=== PATIENT | female | born 1995 | race Caucasian/White ===

== ENCOUNTER 2018-01-14 15:26 | Observation (INO) | payer OTHER ==
[~2018-01-14] VITALS: Ht 160 cm; Wt 63.5 kg
[2018-01-14] MEDS ORDERED: CYMBALTA60 MG PO (15:49)
[2018-01-14] MEDS ORDERED: BUPROPION XL150 MG PO (15:49)
[2018-01-14 16:10] LABS: BASOPHILS # (AUTO) 0.1 (0.0-0.1); BASOPHILS % 0.5 % (0.0-1.0); EOSINOPHILS # (AUTO) 0.1 (0.0-0.4); EOSINOPHILS % 0.6 % (0.0-6.0); HEMATOCRIT 41.1 % (34.2-44.1); HEMOGLOBIN 13.9 g/dL (12.0-16.0); LYMPHOCYTES # (AUTO) 1.8 (1.0-3.2); LYMPHOCYTES % 16.8 % (18.0-39.1); MEAN CORPUSCULAR HEMOGLOBIN 30.5 pg (28-32); MEAN CORPUSCULAR HGB CONC 33.8 g/dL (31-35); MEAN CORPUSCULAR VOLUME 90.3 fL (81-99); MONOCYTES # (AUTO) 1.2 (0.2-0.8); MONOCYTES % 11.3 % (4.4-11.3); NEUTROPHILS # (AUTO) 7.5 (2.1-6.9); NEUTROPHILS % 70.5 % (38.7-80.0); PLATELET COUNT 268 x10e3/uL (140-360); RED BLOOD COUNT 4.55 x10e6/uL (3.6-5.1); RED CELL DISTRIBUTION WIDTH 13.1 % (11.7-14.4)
[2018-01-14] MEDS ORDERED: SODIUM CHLORIDE 0.9% 1000ML 1,000 ML IV ONE (16:15)
[2018-01-14 16:23] LABS: ALANINE AMINOTRANSFERASE 16 IU/L (0-55); ALBUMIN 3.9 g/dL (3.5-5.0); ALBUMIN/GLOBULIN RATIO 1.2 (0.8-2.0); ALKALINE PHOSPHATASE 76 IU/L (40-150); ANION GAP 16.6 mmol/L (8-16); BLOOD UREA NITROGEN 11 mg/dL (7-26); BUN/CREATININE RATIO 13 (6-25); CALCIUM 9.7 mg/dL (8.4-10.2); CARBON DIOXIDE 22 mmol/L (22-29); CHLORIDE 102 mmol/L (98-107); CREATININE, SERUM 0.84 mg/dL (0.57-1.11); EST GLOMERULAR FILTRATION RATE > 60 ML/MIN (60-); GLUCOSE 117 mg/dL (74-118); MAGNESIUM 2.2 MG/DL (1.3-2.1); POTASSIUM 3.6 mmol/L (3.5-5.1); SODIUM 137 mmol/L (136-145)
[2018-01-14 16:25] LABS: CLARITY,URINE SL CLOUDY (CLEAR); COLOR,URINE YELLOW (YELLOW)
[2018-01-14 16:26] LABS: BILIRUBIN,URINE NEGATIVE (NEGATIVE); KETONES,URINE NEGATIVE (NEGATIVE); LEUKOCYTE ESTERASE ,URINE TRACE (NEGATIVE); NITRITE,URINE NEGATIVE (NEGATIVE); PROTEIN,URINE DIPSTICK TRACE (NEGATIVE); URINE UROBILINOGEN 0.2 mg/dL (0.2 - 1)
[2018-01-14 16:28] LABS: AMPHETAMINES SCREEN,URINE NEGATIVE (NEGATIVE); BENZODIAZEPINES SCREEN,URINE NEGATIVE (NEGATIVE); PHENCYCLIDINE SCREEN,URINE NEGATIVE (NEGATIVE)
[2018-01-14 16:38] LABS: WBC,URINE (MAN) 0-5 /HPF (0-5)
[2018-01-14 16:39] LABS: BACTERIA,URINE MODERATE /HPF; EPITHELIAL CELLS,URINE FEW /LPF
--- NOTE | 2018-01-14 17:55 | Diagnostic Imaging Report ---
Exam: Head CT without contrast History: Possible seizure Comparison studies: None Technique: Axial images were obtained from the skull base to the vertex. Coronal and sagittal images reconstructed from the axial data. Dose modulation, iterative reconstruction, and/or weight based adjustment of the mA/kV was utilized to reduce the radiation dose to as low as reasonably achievable. Radiation dose: Total DLP: 806 mGy*cm. Estimated effective dose: DLP x 0.015 Intravenous contrast: None Findings: Scalp: No abnormalities. Bones: No fractures, blastic or lytic lesions. Brain sulci: Appropriate for age. Ventricles: Normal in size and configuration. No hydrocephalus. Extra-axial spaces: No masses, no fluid collection. Parenchyma: No abnormal densities. No masses, acute hemorrhage, acute or chronic vascular insults. Sellar/suprasellar region: No abnormalities. Craniocervical junction: Patent foramen magnum. No Chiari one malformation. Incidental findings: Metallic right tragus piercing. IMPRESSION: No acute abnormalities. Signed by: Dr. Everton Barone M.D. on 01/14/2018 4:49 PM
[2018-01-14] MEDS: SODIUM CHLORIDE 0.9% 1000ML 1,000 ML IV SCH (18:34)
[2018-01-14 18:44] VITALS: BP 125/88
[2018-01-14 20:00] VITALS: BP 109/77
[2018-01-14] MEDS ORDERED: ACETAMINOPHEN 325 MG TAB PO PRN (20:00)
--- NOTE | 2018-01-14 20:44 | Consultation ---
DATE OF CONSULTATION: January 14, 2018 NO DICTATION. 19 seconds. Job#: [id number]
[2018-01-15] VITALS: BP 109/72
[2018-01-15 04:00] VITALS: BP 97/61
[2018-01-15] MEDS: SODIUM CHLORIDE 0.9% 1000ML 1,000 ML IV SCH ×2 (05:05→09:34)
[2018-01-15 05:20] LABS: BASOPHILS # (AUTO) 0.1 (0.0-0.1); BASOPHILS % 0.7 % (0.0-1.0); EOSINOPHILS # (AUTO) 0.1 (0.0-0.4); EOSINOPHILS % 0.9 % (0.0-6.0); HEMATOCRIT 40.1 % (34.2-44.1); HEMOGLOBIN 13.1 g/dL (12.0-16.0); LYMPHOCYTES # (AUTO) 3.2 (1.0-3.2); LYMPHOCYTES % 32.7 % (18.0-39.1); MEAN CORPUSCULAR HEMOGLOBIN 30.7 pg (28-32); MEAN CORPUSCULAR HGB CONC 32.7 g/dL (31-35); MEAN CORPUSCULAR VOLUME 93.9 fL (81-99); MONOCYTES # (AUTO) 1.1 (0.2-0.8); NEUTROPHILS # (AUTO) 5.3 (2.1-6.9); NEUTROPHILS % 54.4 % (38.7-80.0); PLATELET COUNT 250 x10e3/uL (140-360); RED BLOOD COUNT 4.27 x10e6/uL (3.6-5.1); RED CELL DISTRIBUTION WIDTH 13.2 % (11.7-14.4)
[2018-01-15 05:44] LABS: ANION GAP 11.6 mmol/L (8-16); BLOOD UREA NITROGEN 8 mg/dL (7-26); BUN/CREATININE RATIO 11 (6-25); CALCIUM 9.4 mg/dL (8.4-10.2); CARBON DIOXIDE 26 mmol/L (22-29); CHLORIDE 110 mmol/L (98-107); CREATININE, SERUM 0.74 mg/dL (0.57-1.11); EST GLOMERULAR FILTRATION RATE > 60 ML/MIN (60-); GLUCOSE 92 mg/dL (74-118); MAGNESIUM 2.6 MG/DL (1.3-2.1); SODIUM 143 mmol/L (136-145)
[2018-01-15 05:45] LABS: POTASSIUM 4.6 mmol/L (3.5-5.1)
[2018-01-15 05:51] LABS: PHOSPHORUS 3.8 MG/DL (2.3-4.7)
[2018-01-15 07:15] VITALS: BP 99/61
[2018-01-15 07:43] VITALS: BP 99/61
[2018-01-15] MEDS ORDERED: CEFTRIAXONE SOD 1 GM/NS 50 ML 50 ML IV SCH (08:15)
[2018-01-15] MEDS ORDERED: CEFTRIAXONE SOD 1 GM VIAL IV SCH ×2 (08:30)
[2018-01-15] MEDS ORDERED: BUPROPION HCL 150 MG TABCR PO SCH (09:00)
--- NOTE | 2018-01-15 09:52 | Diagnostic Imaging Report ---
EXAMINATION: MRI of the brain without contrast. HISTORY: 22-year-old female with seizures COMPARISON: None. TECHNIQUE: Sagittal T2; axial DWI, T2, FLAIR, T1-IR, T2 gradient echo; coronal FLAIR. IMAGE QUALITY: Adequate. FINDINGS: Parenchyma: 1. Questionable subtle increased FLAIR signal in the bilateral hippocampi, left greater than right . No significant hippocampal volume loss or architectural distortion. 2. Otherwise no areas of abnormal signal intensity within the brain parenchyma. 3. No mass, hemorrhage, acute or chronic infarcts. Skull: Unremarkable. Vessels: Expected flow voids present in the major arteries and dural sinuses. Extra-axial spaces: No abnormal signal intensity or mass effect. Brain volume: Within normal limits for age. Ventricles: No hydrocephalus or displacement. Foramen magnum: Unremarkable. Sella: Unremarkable. Paranasal / mastoid sinuses: Mild mucosal thickening in the right nasal cavity. IMPRESSION: 1. No mass, hemorrhage or vascular insult. 2. Questionable subtle increased FLAIR signal in the hippocampi, left greater than right, could be secondary to artifact, recent ictal activity or developing mesial temporal sclerosis. Preliminary report dictated by Dr. Caroline Jackson, Neuroradiology Fellow. A final report by the attending radiologist will follow. The preliminary report was reviewed and a final report issued by Dr. Morales neuroradiologist on 01/15/2018 at 4:42 PM. Signed by: Dr. Ruthie Morales M.D. on 01/15/2018 4:43 PM
[2018-01-15 11:50] VITALS: BP 119/85
--- NOTE | 2018-01-15 14:00 | Electroencephalogram ---
DATE OF STUDY: January 15, 2018 REQUESTING PHYSICIAN: Zulma Arias MD PATIENT HISTORY: This 22-year-old woman with syncope versus seizure is having an EEG for evaluation of epileptiform activity. The patient is not taking any medications that might affect the EEG. TECHNIQUE: This is a routine, portable EEG, recorded digitally using the International 10/20 Electrode Placement System and done in the inpatient setting with the patient awake. The EEG is technically limited because of muscle and electrical artifact. DESCRIPTION: Well-organized, well-sustained, 10-11 Hz activity is best seen symmetrically in the posterior head regions. No focal or epileptiform activity is recorded. Sleep is not recorded. Photic stimulation does produce a driving response. Hyperventilation does not produce slowing. INTERPRETATION: This EEG is normal with the patient awake. No epileptiform discharges are seen. Job#: [id number] GEORGINA MONTOYA
--- NOTE | 2018-01-15 17:11 | Consultation ---
DATE OF CONSULTATION: January 15, 2018 NEUROLOGY CONSULTATION HISTORY OF PRESENT ILLNESS: Ms. Campbell is a 22-year-old, [id number] woman with past medical history significant for prior syncopal events attributed to hypoglycemia and mixed depression and anxiety disorder, admitted to [facility] on January 14, 2018, with syncope versus seizure. On the afternoon of January 14, 2018, the patient was sitting in a hallway at school, reading a book. The next memory the patient has is coming to with her digital marketing manager sitting in front of her, other adults surrounding her and someone informing her emergency medical services had been notified. Ms. Campbell reports being told a student saw her sitting in a chair, unresponsive, with shaking of the arms and legs. Ms. Campbell was reported to be drooling as well. There was no tongue biting. There was no bladder or bowel incontinence. The duration of this activity is not known. Ms. Campbell does report a mild headache as well as diffuse myalgias following the event. The duration of the above activity is not known. When the patient regained consciousness, she knew who she was and where she was. However, she was confused as to why her digital marketing manager was sitting in front of her with other teachers and adults surrounding her. Ms. Campbell reports experiencing a similar event approximately 1 month ago. A few years ago, she experienced 2 syncopal events which were said to be due to hypoglycemia. Ms. Campbell does not report sleep deprivation, recent infectious illness, stimulant use (prescription or recreational), excessive alcohol intake, or recent adjustments of prescription psychotropic medications. Patient does not report a history of febrile seizures. There is no known family history of seizures. Ms. Campbell does report hitting her head once on concrete and another time on a sink during prior syncopal events. There is no reported history of meningitis or encephalitis. As indicated above, the patient was transported to the emergency center at [facility] via ambulance for further evaluation of her symptoms. Upon arrival in the emergency Center, the patient was afebrile with a blood pressure of 135/97 mmHg and pulse of 131 beats per minute. Her neurological examination was documented as being nonfocal. A CT of the brain without contrast was performed while the patient was in the emergency center. There was no evidence of recent large territorial ischemia or hemorrhage on this study. Ms. Campbell was admitted to [facility] under observation status for further evaluation and treatment. REVIEW OF SYSTEMS: Syncope, headache, diffuse myalgias. Otherwise, the 12-point review of systems is negative. PAST MEDICAL HISTORY: Prior syncopal events attributed to hypoglycemia, mixed depression/anxiety disorder. PAST SURGICAL HISTORY: Hye teeth extraction. PAST HOSPITALIZATIONS: None. FAMILY MEDICAL HISTORY: The patient's paternal grandparents are alive. The paternal grandfather is healthy. The paternal grandmother has diabetes mellitus. Ms. Campbell and her family have no contact with the patient's maternal grandfather. His medical history is unknown. The patient's maternal grandmother is alive. However, her medical history is unknown. Ms. Campbell's father is alive and has obstructive sleep apnea. Her mother is alive and healthy. The patient has 2 brothers and 4 sisters, all of whom are alive and healthy with the exception of the eldest sister who has hypertension. Ms. Campbell has no biological children. SOCIAL HISTORY: Patient is . 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 The patient does not report current or prior tobacco or recreational drug use. She is a social drinker. HOME MEDICATIONS: Wellbutrin 150 mg by mouth daily, Cymbalta 60 mg by mouth daily. ALLERGIES: NO KNOWN DRUG ALLERGIES. NO KNOWN FOOD ALLERGIES. NO KNOWN ALLERGIES TO LATEX. NO KNOWN ALLERGIES TO IODINE OR OTHER CONTRAST MATERIALS. PHYSICAL EXAMINATION VITAL SIGNS: Height 63 inches, weight 140 pounds, BMI 24.8 kg per meter squared. Blood pressure 119/85 mmHg, pulse 83 beats per minute, respiratory rate 16 breaths per minute. Oxygen saturation 99% on room air. GENERAL: The patient is awake and alert, does not appear distressed. HEENT: Normocephalic, atraumatic. Pupils are equal, round and reactive to light. Moist mucous membranes. NECK: Supple. No appreciable thyromegaly. No appreciable carotid bruits. CARDIOVASCULAR: S1 and S2, regular rate and rhythm. No murmurs, rubs, or gallops. RESPIRATORY: Clear to auscultation bilaterally. No wheezes, rhonchi or rales. EXTREMITIES: The skin is warm and dry. No clubbing, cyanosis, or edema. The posterior tibial and dorsalis pedis pulses are 2+ and symmetric. SKIN: No rashes or lesions. NEUROLOGIC EXAMINATION MEMORY/ATTENTION: The patient is awake and alert, oriented to person, place, time, and situation. CRANIAL NERVES: Cranial nerve I: Not tested. Cranial nerves II, III, IV, and : Pupils are equal and round, react briskly to light (from 4 mm to 2 mm). Extraocular movements are intact. No nystagmus. Cranial nerve V: Sensation to light touch and pinprick is intact in the bilateral V1 through V3 distributions. Strength of the temporalis and masseter muscles is within normal limits. Cranial nerve VII: The face is symmetric as are all facial movements. Strength is within normal limits. Cranial nerve VIII: Hearing is intact to finger rub bilaterally. Cranial nerves IX and X: The soft palate elevates equally and symmetrically. Cranial nerve XI: Normal strength of the bilateral sternocleidomastoid and trapezius muscles. Cranial nerve XII: The tongue protrudes midline and moves symmetrically from side to side. STRENGTH: Bulk is normal. Strength is 5/5 in the bilateral deltoids, biceps, triceps, wrist flexors and extensors, finger flexors and extensors, intrinsic hand muscles, hip flexors, knee flexors and extensors, ankle dorsiflexion and plantar flexion, and intrinsic foot muscles. Tone is normal. DTRs: Deep tendon reflexes are 2+ and symmetric at the triceps, biceps, brachioradialis, patellas, and Achilles. Plantar responses are flexor bilaterally. SENSATION: Sensation is intact to light touch and pinprick in both arms and both legs. CEREBELLAR: Uftzoo-khlr-zierkd and heel-means movements are intact without dysmetria or other impairment. GAIT: Deferred. SPEECH: Spontaneous speech is normal without appreciable dysarthria or aphasia. Repetition is intact. INVOLUNTARY MOVEMENTS: None. PRONATOR DRIFT: None. LABORATORY DATA: A basic metabolic panel was within normal limits except as follows: Phosphorous was low at 2.0, and magnesium was mildly elevated at 2.2. A prolactin level is pending. A qualitative hCG is negative. The CBC with differential and platelets reveals a white blood cell count of 9.79 with a normal differential. The hemoglobin and hematocrit are 13.1 and 40.1, respectively. The platelet count is 250. A quantitative D-dimer is 0.31. A urinalysis was significant for an elevated specific gravity of 1.030, trace protein, 1+ blood, trace leukocyte esterase, moderate urine bacteria. A urine drug screen was negative. DIAGNOSTIC STUDIES 1. CT of the brain without contrast, 01/14/2018: On my review, there is no evidence of recent large territorial ischemia, hemorrhage, mass, or mass effect. Cerebral volumes are appropriate for age. There are no findings suggestive of chronic small vessel ischemic disease. 2. MRI of the brain without contrast, 01/15/2018: On my review, there is no evidence of recent large territorial ischemia, hemorrhage, mass, or mass effect. There is no evidence of cortical dysplasia or mesial temporal sclerosis. Cerebral volumes are appropriate for age. There are no findings suspicious for chronic small vessel ischemic disease. Ms. Campbell is a 22-year-old woman with past medical history significant for prior syncopal events attributed to hypoglycemia and mixed depression/anxiety disorder admitted to [facility] on January 14, 2018, with syncope versus seizure. The patient's neurological examination is nonfocal. Her laboratory data and other diagnostic studies have been reviewed and are documented above. Ms. Campbell has a normal MRI of the brain without contrast as well as a normal routine EEG (please see dictated report). Therefore, the suspicion for an underlying seizure disorder is very low. No further evaluation or treatment is recommended from neurology at this time. Thank you for this consultation. Please call again with any questions or concerns. Time spent: 70 minutes. Job#: [id number] GEORGINA MONTOYA
--- NOTE | 2018-01-15 17:24 | History and Physical ---
SHORTSTAY SUMMARY The patient has no PCP. CHIEF COMPLAINT: Near syncope. HISTORY OF PRESENT ILLNESS: Ms. Campbell is a 22-year-old lady who presents with near syncope. She did not have a complete loss of consciousness, but she did become partially unresponsive with some twitching but did not have a postictal state when she woke up. The patient has had 2 or 3 similar episodes and has been seen in the past and was felt to be hypoglycemic. She is a rather slight lady with a low blood pressure at baseline. REVIEW OF SYSTEMS: She denies fever, chills or weight loss. She denies sinus congestion or sore throat. She denies chest pain or palpitations. She denies shortness breath, wheezing or cough. She denies abdominal pain, nausea, vomiting or melena. She denies dysuria or flank pain. She denies rash or pruritus. She denies bleeding or bruising. She denies headache or vertigo. She did have near loss of consciousness. She denies depression, agitation, homicidal or suicidal ideation. PAST MEDICAL HISTORY: Completely negative. She is on no medications. There is some question of hypoglycemia. She has had no previous surgery. ALLERGIES: SHE HAS NO KNOWN DRUG ALLERGIES. FAMILY HISTORY: Unremarkable. SOCIAL HISTORY: The patient is here with her or partner. She is . Haitian is her primary language. She does not smoke, drink or use illegal drugs. She is generally independently functioning. PHYSICAL EXAMINATION PSYCHIATRIC: She is alert and oriented times 3 with normal mood and affect. CONSTITUTIONAL: She has a normal body habitus. She is in no acute distress. VITAL SIGNS: Blood pressure 99/61. Pulse 91 and regular. Respiratory rate 18. O2 sat 98% on room air. Temperature 97.9. HEENT: Her head is atraumatic. Her eyes are anicteric with clear conjunctivae. Ears and nares are without erythema or discharge. Oropharynx is clear. NECK: Supple with no mass or thyromegaly. LYMPHATIC SYSTEM: She has no palpable cervical, axillary or inguinal adenopathy. CARDIOVASCULAR: Heart has a regular rate and rhythm without murmur or extra heart sound. She has no carotid bruit. She has no peripheral edema. She has palpable dorsal pedal pulses. RESPIRATORY: Lungs are clear to auscultation and percussion with normal respiratory effort. GASTROINTESTINAL: Her abdomen is soft without organomegaly, masses or tenderness. She has normal bowel sounds present. CUTANEOUS: Her skin is warm and dry to touch with no rash or skin breakdown. MUSCULOSKELETAL: Her joints are in normal alignment without erythema or swelling. She has no calf tenderness. NEUROLOGIC: Exam is nonfocal with intact cranial nerves and no motor or sensory deficits. DIAGNOSTIC STUDIES: CT and MRI of the brain show no acute changes. Her chemistry shows normal electrolytes. CO2 26. Creatinine 0.74, BUN 8, glucose 92. Transaminases, bilirubin and alk phos are normal. CBC shows a white count of 9.79 with a normal differential. Hemoglobin 13.1, hematocrit 40.1 and platelet count 250,000. IMPRESSION AND PLAN: Near syncope, most likely orthostatic or hypoglycemic in nature in this healthy young woman. She has been seen by neuro who feels this is not anything related to seizure activity. She evaluated her MRI scan and felt it was completely normal and cleared the patient for discharge. HOSPITAL COURSE: The patient was admitted overnight for observation. She was asymptomatic. The following morning, she was ambulating without difficulty, had been cleared by neuro and was discharged home. She was instructed to try to eat more regularly to avoid hypoglycemia and to stay hydrated to avoid orthostatic hypotension. The patient can resume a regular diet and activity and follow up with a PCP within 2 weeks. Job#: [id number] GEORGINA
== END 2018-01-15 14:09 | disposition home or self-care (01) ==
LOC: ER 15:26 → EDBD 15:26 → ERHOLD 18:30 → IMCU 18:34
PROVIDERS: ADMIT Internal Medicine; ATTEND Internal Medicine
DX: R55 Syncope and collapse (principal); E16.2 Hypoglycemia, unspecified; R56.9 Unspecified convulsions; F41.8 Other specified anxiety disorders
CPT/HCPCS: 36415 ×2; 70450; 70551; 80048; 80053; 80307; 81001; 83735 ×2; 84100 ×2; 84146; 84484; 84702; 85025 ×2; 85379; 87086; 93005; 95812 ×2; 97139; 99284; G0378 ×2; J0696; J7030 ×2